=== PATIENT | female | born 1940 | race Caucasian/White ===

== ENCOUNTER → 2019-01-14 | Outpatient (REF) | payer MEDICARE ==
[~2019-01-14] MED LIST: AMLODIPINE5 MG PO; CALCI17 PO; PREVACID30 M1 PO; RECLAST5 MG/100 M IV
[2019-01-14 13:49] VITALS: BP 139/86
== END | disposition home or self-care (01) ==
LOC: INF 13:00
PROVIDERS: ATTEND Internal Medicine
DX: M81.0 Age-related osteoporosis without current pathological fracture (principal)
CPT/HCPCS: J3489

== ENCOUNTER 2025-01-15 11:57 | Inpatient (IN) | payer MEDICARE ==
[~2025-01-15] VITALS: Ht 162.6 cm; Wt 56.1 kg
[2025-01-15 12:27] VITALS: BP 134/79
[2025-01-15] MEDS ORDERED: SODIUM CHLORIDE 0.9% 10 ML SYR IV PRN (13:45)
[2025-01-15] MEDS ORDERED: SODIUM CHLORIDE 0.9% 1,000 ML IV PRN (13:45)
[2025-01-15] MEDS ORDERED: LORazepam 0.5 MG/TAB PO PRN (13:50)
[2025-01-15] MEDS ORDERED: Polyethylene Glycol 3350 17 GM/PKT PO PRN (13:50)
[2025-01-15] MEDS ORDERED: ACETAMINOPHEN 325 MG/TAB PO PRN (13:50)
[2025-01-15] MEDS ORDERED: ALUM & MAG HYDROX-SIMETHICONE 30 ML PO PRN (13:50)
[2025-01-15 13:59] LABS: HEMATOCRIT 48.2 % (37.0-47.0); HEMOGLOBIN 15.9 g/dl (12.0-16.0); IMMATURE GRANULOCYTES 0.1 % (0.0-5.0); LYMPH% 4.9 % (15-41); MEAN CELL VOLUME 92.2 fL CALC (80.0-100.0); MEAN CORPUSCULAR HGB 30.4 pG CALC (26.0-32.0); MONO% 8.5 % (2-13); NEUT# 8.24 thou/uL (2.00-7.15); NEUT% 86.5 % (42-76); RED BLOOD COUNT 5.23 mill/uL (4.20-5.60); RED CELL DISTRI WIDTH 14.1 % (11.5-15.5)
[2025-01-15] MEDS ORDERED: SODIUM CHLORIDE 0.9% 10 ML SYR IV SCH (14:00)
[2025-01-15 14:20] LABS: CREATININE 0.7 mg/dL (0.5-1.0); POTASSIUM 4.3 mmol/l (3.5-5.1)
[2025-01-15] MEDS ORDERED: AZITHROMYCIN 500 MG in SODIUM CHLORIDE 0.9% 250 ML IV SCH (15:00)
[2025-01-15 16:13] VITALS: BP 152/86
[2025-01-15] MEDS ORDERED: IPRATROPIUM-Albuterol 0.5MG-2.5MG/3 ML ONE (16:37)
[2025-01-15] MEDS ORDERED: IPRATROPIUM-Albuterol 0.5MG-2.5MG/3 ML IN SCH (19:00)
[2025-01-15] MEDS ORDERED: OSELTAMIVIR PHOSPHATE 75 MG/TAB CAP PO ONE (21:00)
[2025-01-15 21:13] VITALS: BP 145/76
[2025-01-16] VITALS (8 sets, daily range): BP systolic 120–147; BP diastolic 65–104
[2025-01-16 05:38] LABS: BASO% 0.1 % (0-3); HEMATOCRIT 44.2 % (37.0-47.0); HEMOGLOBIN 14.5 g/dl (12.0-16.0); IMMATURE GRANULOCYTES 0.1 % (0.0-5.0); LYMPH% 11.1 % (15-41); MEAN CELL VOLUME 93.6 fL CALC (80.0-100.0); MEAN CORPUSCULAR HGB 30.7 pG CALC (26.0-32.0); MEAN CORPUSCULAR HGB CONC 32.8 g/dL CAL (32.0-36.0); MONO% 7.9 % (2-13); NEUT# 7.17 thou/uL (2.00-7.15); NEUT% 80.8 % (42-76); RED BLOOD COUNT 4.72 mill/uL (4.20-5.60); RED CELL DISTRI WIDTH 14.2 % (11.5-15.5)
[2025-01-16 05:43] LABS: URINE BILIRUBIN - DIPSTICK Negative (NEGATIVE); URINE BLOOD DIPSTICK Negative (NEGATIVE); URINE CLARITY Clear; URINE COLOR Yellow; URINE GLUCOSE - DIPSTICK Negative (NEGATIVE); URINE KETONE 15 mg/dL (NEGATIVE); URINE LEUK ESTERASE Negative (Negative); URINE NITRITE - DIPSTICK Negative (Negative); URINE PH 5.5 (4.5-8.0); URINE PROTEIN - DIPSTICK 30 mg/dL (NEG-TRACE); URINE SPECIFIC GRAVITY 1.025; URINE UROBILINOGEN - DIPSTICK 0.2 E.U./dL (0.2)
[2025-01-16 05:44] LABS: URINE MUCUS RARE hpf (NONE-FEW); URINE WBC 0-2 WBC/hpf (0-5)
[2025-01-16 05:55] LABS: ALBUMIN 3.6 g/dL (3.2-5.0); CREATININE 0.6 mg/dL (0.5-1.0); MAGNESIUM 1.8 mg/dL (1.6-2.3); POTASSIUM 3.5 mmol/l (3.5-5.1); TOTAL PROTEIN 6.3 g/dL (6.3-8.2)
[2025-01-16 06:02] LABS: BILIRUBIN, TOTAL 0.5 mg/dL (0.02-1.3)
[2025-01-16] MEDS ORDERED: PANTOPRAZOLE SODIUM Sesquihydr 40 MG/TAB PO SCH (09:00)
[2025-01-16] MEDS ORDERED: OSELTAMIVIR PHOSPHATE 30 MG/CAP PO SCH (09:00)
[2025-01-16] MEDS ORDERED: amLODIPine BESYLATE 5 MG/TAB PO SCH (09:00)
[2025-01-16] MEDS ORDERED: methylPREDNISolone Sod Succ 40 MG/ML SDV IV SCH (12:30)
[2025-01-17 01:00] VITALS: BP 137/74
[2025-01-17 03:58] VITALS: BP 129/73
[2025-01-17 05:34] LABS: BASO% 0.1 % (0-3); HEMATOCRIT 39.2 % (37.0-47.0); HEMOGLOBIN 13.1 g/dl (12.0-16.0); IMMATURE GRANULOCYTES 0.3 % (0.0-5.0); MEAN CELL VOLUME 93.1 fL CALC (80.0-100.0); MEAN CORPUSCULAR HGB 31.1 pG CALC (26.0-32.0); MEAN CORPUSCULAR HGB CONC 33.4 g/dL CAL (32.0-36.0); MONO% 3.9 % (2-13); NEUT# 8.9 thou/uL (2.00-7.15); NEUT% 87.7 % (42-76); RED BLOOD COUNT 4.21 mill/uL (4.20-5.60); RED CELL DISTRI WIDTH 14.2 % (11.5-15.5)
[2025-01-17 05:59] LABS: ALBUMIN 2.9 g/dL (3.2-5.0); BILIRUBIN, TOTAL 0.4 mg/dL (0.02-1.3); CREATININE 0.5 mg/dL (0.5-1.0); POTASSIUM 3.5 mmol/l (3.5-5.1); TOTAL PROTEIN 5.6 g/dL (6.3-8.2)
[2025-01-17 06:21] VITALS: BP 140/81
[2025-01-17 19:04] VITALS: BP 125/73
[2025-01-17 19:50] VITALS: BP 121/68
[2025-01-17 23:26] VITALS: BP 121/68
[2025-01-18 04:04] VITALS: BP 162/85
[2025-01-18 05:11] LABS: BASO% 0.1 % (0-3); HEMATOCRIT 42.2 % (37.0-47.0); HEMOGLOBIN 13.8 g/dl (12.0-16.0); IMMATURE GRANULOCYTES 0.3 % (0.0-5.0); MEAN CELL VOLUME 93.2 fL CALC (80.0-100.0); MEAN CORPUSCULAR HGB 30.5 pG CALC (26.0-32.0); MEAN CORPUSCULAR HGB CONC 32.7 g/dL CAL (32.0-36.0); MONO% 5.9 % (2-13); NEUT# 11.5 thou/uL (2.00-7.15); NEUT% 84.4 % (42-76); RED BLOOD COUNT 4.53 mill/uL (4.20-5.60); RED CELL DISTRI WIDTH 14.2 % (11.5-15.5)
[2025-01-18 05:24] LABS: ALBUMIN 2.9 g/dL (3.2-5.0); BILIRUBIN, TOTAL 0.4 mg/dL (0.02-1.3); CREATININE 0.6 mg/dL (0.5-1.0); POTASSIUM 3.6 mmol/l (3.5-5.1); TOTAL PROTEIN 5.6 g/dL (6.3-8.2)
[2025-01-18 05:35] LABS: LYMPH% 9.3 % (15-41)
[2025-01-18 07:00] VITALS: BP 125/74
[2025-01-18 11:09] VITALS: BP 141/77
[2025-01-18 19:02] VITALS: BP 129/75
[2025-01-19 04:21] VITALS: BP 147/87
[2025-01-19 05:10] LABS: BASO% 0.1 % (0-3); HEMATOCRIT 41.3 % (37.0-47.0); HEMOGLOBIN 13.5 g/dl (12.0-16.0); IMMATURE GRANULOCYTES 0.4 % (0.0-5.0); LYMPH% 10.9 % (15-41); MEAN CELL VOLUME 93.2 fL CALC (80.0-100.0); MEAN CORPUSCULAR HGB 30.5 pG CALC (26.0-32.0); MEAN CORPUSCULAR HGB CONC 32.7 g/dL CAL (32.0-36.0); MONO% 7.7 % (2-13); NEUT# 9.85 thou/uL (2.00-7.15); NEUT% 80.9 % (42-76); RED BLOOD COUNT 4.43 mill/uL (4.20-5.60); RED CELL DISTRI WIDTH 14.3 % (11.5-15.5)
[2025-01-19 05:15] LABS: ALBUMIN 2.9 g/dL (3.2-5.0); BILIRUBIN, TOTAL 0.5 mg/dL (0.02-1.3); CREATININE 0.6 mg/dL (0.5-1.0); POTASSIUM 3.5 mmol/l (3.5-5.1); TOTAL PROTEIN 5.5 g/dL (6.3-8.2)
[2025-01-19 06:53] VITALS: BP 159/76
[2025-01-19] MEDS ORDERED: METOPROLOL SUCCINATE 25 MG/TAB-TOPROL XL PO SCH (09:00)
[2025-01-19] MEDS ORDERED: VANTIN200 M1 PO (10:27)
[2025-01-19] MEDS ORDERED: AZITHROMYCIN500 MG PO (10:28)
[2025-01-19] MEDS ORDERED: PREDNISONE10 MG PO (10:29)
[2025-01-19] MEDS ORDERED: TOPROL XL25 MG PO (10:30)
[2025-01-19 10:46] VITALS: BP 142/80
== END 2025-01-19 13:21 | disposition home health service (06) | DRG 193 ==
LOC: MS2 11:57
PROVIDERS: Internal Medicine; Nurse Practitioner Family; ADMIT Internal Medicine; ATTEND Internal Medicine
DX: J10.00 Influenza due to other identified influenza virus with unspecified type of pneumonia (principal); J96.01 Acute respiratory failure with hypoxia; I10 Essential (primary) hypertension; K21.9 Gastro-esophageal reflux disease without esophagitis; I49.1 Atrial premature depolarization
CPT/HCPCS: J0456; J0696